=== PATIENT | male | born 1995 | race Caucasian/White ===

== ENCOUNTER 2018-06-14 17:16 | Observation (INO) ==
[2018-06-14] MEDS ORDERED: *HR* LORazepam 2 MG/ML VIAL ONE (17:19)
[2018-06-14] MEDS ORDERED: *HR* LORazepam 2 MG/ML VIAL IVP ONE (17:22)
[2018-06-14] MEDS ORDERED: levETIRAcetam 1,000 MG in 0.9 % Sodium Chloride 100 ML IVPB ONE (17:22)
--- NOTE | 2018-06-14 17:31 | Emergency Department Note ---
Disposition Clinical Impression: Status epilepticus Altered mental status Qualifiers: Altered mental status type: unspecified Qualified Code(s): R41.82 - Altered mental status, unspecified Disposition: Admitted As Inpatient Condition: Good Time of Disposition: 00:07 Seizure HPI - General Chief Complaint: ED Seizure Stated Complaint: seizure Time Seen by Provider: 06/14/18 17:21 Source: patient Mode of arrival: ambulatory Limitations: no limitations Nursing Notes Reviewed: Yes Vital Signs Reviewed: Yes - History of Present Illness HPI Narrative: 22-year-old male history of seizure disorder last seizure reported 2 years ago not currently on any antiepileptic medication presents to the emergency departme nt presents emergency department for altered mental status. Patient was seen immediately on arrival and was placed in the trauma bay resuscitation room. He was initially limpid nonresponsive. With sternal rub he did awaken. He however is not speaking. A point of care glucose was performed in it was 90. Family members state that he was not feeling well today. He did have a documented fever of 103 at 1400 and was given for tablets of ibuprofen. Patients afebrile here. They will recall any seizure like activity. During my evaluation his jaw clenched and had what appear to be a 2nd seizure. His oxygen saturation remained 98%. There was no urinary incontinence or tongue biting. Ativan was administered after the activity had ceased. No reported trauma. Pt Subjective Complaint: possible seizure, altered sense of awareness - Related Data Previous Rx's Medication Instructions Recorded Cyclobenzaprine [Flexeril] 10 mg PO TID #30 tablet 03/16/15 Ibuprofen [Motrin] 800 mg PO Q8HR #30 tablet 03/16/15 Allergies Allergy/AdvReac Type Severity Reaction Status Date / Time No Known Allergies Allergy Verified 03/16/15 09:04 Limitations: ROS unobtainable due to patients medical condition Past Medical History - Past Medical History Source: obtained from family Medical history: Reports: seizures Surgical history: Reports: no surgical history Psychiatric history: Reports: no psych history - Social History Smoking Status: Never smoker Smokeless Tobacco Status: No Alcohol use: Reports: occasionally Drug use: Reports: none Physical Exam - General Limitations: no limitations General appearance: alert, in no apparent distress - Head Head exam: atraumatic, normocephalic, normal inspection - Eye Eye exam: Present: normal appearance, PERRL, EOMI - ENT ENT exam: normal exam, normal oropharynx, mucous membranes moist - Expanded ENT Exam External ear exam: Present: normal external inspection Mouth exam: Present: normal external inspection, tongue normal. Absent: laceration Teeth exam: Present: normal inspection Throat exam: Present: normal inspection - Neck Neck exam: Present: normal inspection, full ROM, trachea midline - Chest Chest inspection: Present: normal inspection, symmetric chest wall rise - Respiratory Respiratory exam: Present: normal lung sounds bilaterally - Cardiovascular Cardiovascular exam: Present: regular rate, normal rhythm, normal heart sounds - Abdominal Exam Abdominal exam: Present: soft, Non-Tender, normal bowel sounds. Absent: tenderness, distention, guarding, rebound, rigidity - Extremities Exam Extremities exam: Present: normal inspection, full ROM, normal capillary refill. Absent: tenderness, pedal edema - Back Exam Back exam: Present: normal inspection, full ROM. Absent: tenderness - Skin Skin exam: Present: warm, dry, intact, normal color. Absent: rash, cyanosis, diaphoresis Course Course Narrative: Patient had what appear to be a seizure during evaluation. Reported history of seizures but is not currently on any antiepileptic medication. Fever prior to arrival a febrile here. Patient had complained to family member of difficulty with vision. Workup including CT scan basic labs urine drug screen and likely will require lumbar puncture. Patient was given Ativan and will be bolus Keppra - Reevaluation(s) Reevaluation #1: CT scan did not reveal any intracranial abnormality. He had a mild leukocytosis. Loves or otherwise unremarkable. Lumbar puncture was performed and was unsuccessful after one attempt by myself and 2 other emergency physician writers. At this time patient will be empirically treated with antibiotics including acyclovir and Decadron. Interventional radiology has been contacted to perform lumbar puncture under fluoroscopy. Time: 19:31 Reevaluation #2: Awaiting lumbar puncture by interventional radiology. Mother and father in the room, the patient is awake and interactive and talking. He denies any pain at this time. This is significantly improved from prior to the lumbar puncture. Time: 20:46 Reevaluation #3: Review of CSF no WBC or red blood cells scene. Culture sent. Recommendation for MRI by neurologist. Patient will be admitted for suspected status epilepticus. - Consultations Consultation #1: Spoke to IR, Dr. Shook will come to perform LP. Time: 19:42 Consultation #2: Consult with Neurologist Dr. Barfield, agrees with current management and recommends inpatient MRI. Recommendation for Keppra 500 mg scheduled BID. Will see the patient in consultation with medicine admission. Discuss the LP results and does not believe it is meningitis. Patient was empirically treated prior to LP Time: 23:17 Vital Signs Temperature 99 F 06/14/18 17:18 Pulse Rate 83 06/14/18 17:18 Respiratory Rate 17 06/14/18 17:18 Blood Pressure 122/55 06/14/18 17:18 O2 Sat by Pulse Oximetry 96 06/14/18 17:18 Temperature 99 F 06/14/18 17:18 Pulse Rate 74 06/14/18 22:15 Respiratory Rate 16 06/14/18 22:15 Blood Pressure 120/58 06/14/18 22:15 O2 Sat by Pulse Oximetry 98 06/14/18 22:15 Oxygen Delivery Oxygen Delivery Room Air Procedures - Lumbar Puncture Consent Obtained: written consent Time Out Performed: Yes Patient Position: right lateral decubitus Skin Prep: Povidone-Iodine 1% Local Anesthetic: lidocaine 1% Spinal Needle Gauge: 20G Interspace Used: L3-L4 Complications: Need to have other Practitioner Attempt, unable to obtain CSF Seizure - MDM Narrative Medical decision making narrative: Patient was discussed with my attending physician who agrees with ED management and final disposition. They independently evaluated the patient. Please refer to their attestation to this encounter for additional information. This note was generated by [employer] voice recognition software and as a result grammatical or spelling errors may occur using this program. - Medical Records Medical records reviewed: Yes I reviewed the patient's medical records. - Lab Data Lab results reviewed: Yes I reviewed the patient's lab results. Result diagrams: 06/14/18 17:32 06/14/18 17:32 Lab Results 06/14/18 06/14/18 06/14/18 Range/Units 17:32 17:32 17:32 WBC 13.0 H (4.3-11.1) K/mcL RBC 4.49 (4.19-5.50) M/mcL Hgb 14.9 (12.9-16.9) g/dL Hct 42.2 (37.5-50.1) % MCV 94.0 (83.0-100.0) fL MCH 33.2 (28.0-33.3) pg MCHC 35.3 (31.6-35.5) g/dL RDW 11.3 L (11.5-14.5) % Plt Count 193 (140-400) K/mcL MPV 10.8 (9.4-12.4) fL Immature Gran % 0.2 (0-4) % Seg Neutrophils % 65.4 % Lymphocytes % 19.0 % Monocytes % 14.7 % Eosinophils % 0.2 % Basophils % 0.5 % Neutrophils # 8.5 (1.6-8.9) K/mcL Lymphocytes # 2.5 (0.6-4.6) K/mcL Monocytes # 1.9 H (0.0-1.3) K/mcL Eosinophils # 0.0 (0.0-0.6) K/mcL Basophils # 0.1 (0.0-0.2) K/mcL Sodium 135 L (136-145) mEq/L Potassium 3.5 (3.5-5.1) mEq/L Chloride 103 (98-107) mEq/L Carbon Dioxide 25 (23-29) mEq/L BUN 12 (6-20) mg/dL Creatinine 1.23 (0.70-1.30) mg/dL Est GFR ( Amer) > 60 (> 60) Est GFR (Non-Af Amer) > 60 (> 60) BUN/Creatinine Ratio 10 (6-26) Glucose 113 H (70-105) mg/dL Calculated Osmolality 281 (280-300) Lactic Acid 1.2 (0.5-2.2) mmol/L Calcium 9.3 (8.6-10.3) mg/dL Total Bilirubin 1.0 (0.3-1.0) mg/dL AST 19 (13-39) Units/L ALT 20 (7-52) Units/L Alkaline Phosphatase 84 (34-104) Units/L Serum Total Protein 6.8 (6.4-8.9) g/dL Albumin 4.3 (3.5-5.7) g/dL Globulin 2.5 (2.4-3.5) g/dL Albumin/Globulin Ratio 1.7 (1.1-2.2) Urine Color (Yellow) Urine Clarity (Clear) Urine pH (5.0-8.0) pH Units Ur Specific Hardy (1.010-1.025) Urine Protein (Neg-Trace) mg/dL Urine Glucose (UA) (Normal) mg/dL Urine Ketones (Negative) mg/dL Urine Blood (Negative) Urine Nitrite (Negative) Urine Bilirubin (Negative) Urine Urobilinogen (Normal) mg/dL Ur Leukocyte Esterase (Negative) Urine Microscopic RBC (0-3) per hpf Urine Microscopic WBC (0-3) per hpf Ur Squamous Epith Cells (None-Few) per lpf Urine Bacteria (None-Few) per hpf Hyaline Casts (None-Few) per lpf CSF Volume mL CSF Appearance (Clear) CSF Color (Colorless) CSF RBC (0.000 - 0.002) M/mcL CSF Tot Nucleated Cells (0-5) TNC/mcL CSF Seg Neutrophils CSF Band Neutrophils % CSF Lymphocytes % CSF Monocytes % CSF Eosinophils % CSF Basophils % CSF Other Cells % CSF Glucose (40-70) mg/dL CSF Total Protein (15-45) mg/dL Salicylates (15.0-30.0) mg/dL Urine Opiates Screen (Zixzjf=427) ng/mL Acetaminophen (10-20) mcg/mL Ur Barbiturates Screen (Nbruoh=680) ng/mL Ur Phencyclidine Scrn (Cutoff=25) ng/mL Ur Amphetamines Screen (Ucsoxb=0087) ng/mL U Benzodiazepines Scrn (Quluxz=421) ng/mL Urine Cocaine Screen (Cutoff= 300) ng/mL U Marijuana (THC) Screen (Cutoff = 50) ng/mL Ur Drug Screen Interp Ethyl Alcohol (Less than 10) mg/dL 06/14/18 06/14/18 06/14/18 Range/Units 19:42 19:42 19:52 WBC (4.3-11.1) K/mcL RBC (4.19-5.50) M/mcL Hgb (12.9-16.9) g/dL Hct (37.5-50.1) % MCV (83.0-100.0) fL MCH (28.0-33.3) pg MCHC (31.6-35.5) g/dL RDW (11.5-14.5) % Plt Count (140-400) K/mcL MPV (9.4-12.4) fL Immature Gran % (0-4) % Seg Neutrophils % % Lymphocytes % % Monocytes % % Eosinophils % % Basophils % % Neutrophils # (1.6-8.9) K/mcL Lymphocytes # (0.6-4.6) K/mcL Monocytes # (0.0-1.3) K/mcL Eosinophils # (0.0-0.6) K/mcL Basophils # (0.0-0.2) K/mcL Sodium (136-145) mEq/L Potassium (3.5-5.1) mEq/L Chloride (98-107) mEq/L Carbon Dioxide (23-29) mEq/L BUN (6-20) mg/dL Creatinine (0.70-1.30) mg/dL Est GFR ( Amer) (> 60) Est GFR (Non-Af Amer) (> 60) BUN/Creatinine Ratio (6-26) Glucose (70-105) mg/dL Calculated Osmolality (280-300) Lactic Acid (0.5-2.2) mmol/L Calcium (8.6-10.3) mg/dL Total Bilirubin (0.3-1.0) mg/dL AST (13-39) Units/L ALT (7-52) Units/L Alkaline Phosphatase (34-104) Units/L Serum Total Protein (6.4-8.9) g/dL Albumin (3.5-5.7) g/dL Globulin (2.4-3.5) g/dL Albumin/Globulin Ratio (1.1-2.2) Urine Color Yellow (Yellow) Urine Clarity Clear (Clear) Urine pH 6.5 (5.0-8.0) pH Units Ur Specific Hardy 1.012 (1.010-1.025) Urine Protein Trace (Neg-Trace) mg/dL Urine Glucose (UA) Normal (Normal) mg/dL Urine Ketones 15 H (Negative) mg/dL Urine Blood Negative (Negative) Urine Nitrite Negative (Negative) Urine Bilirubin Negative (Negative) Urine Urobilinogen Normal (Normal) mg/dL Ur Leukocyte Esterase Negative (Negative) Urine Microscopic RBC 0-3 (0-3) per hpf Urine Microscopic WBC 0-3 (0-3) per hpf Ur Squamous Epith Cells Many H (None-Few) per lpf Urine Bacteria None Seen (None-Few) per hpf Hyaline Casts None Seen (None-Few) per lpf CSF Volume mL CSF Appearance (Clear) CSF Color (Colorless) CSF RBC (0.000 - 0.002) M/mcL CSF Tot Nucleated Cells (0-5) TNC/mcL CSF Seg Neutrophils CSF Band Neutrophils % CSF Lymphocytes % CSF Monocytes % CSF Eosinophils % CSF Basophils % CSF Other Cells % CSF Glucose (40-70) mg/dL CSF Total Protein (15-45) mg/dL Salicylates < 2.5 L (15.0-30.0) mg/dL Urine Opiates Screen Negative (Embono=710) ng/mL Acetaminophen < 10 L (10-20) mcg/mL Ur Barbiturates Screen Negative (Wwkynq=875) ng/mL Ur Phencyclidine Scrn Negative (Cutoff=25) ng/mL Ur Amphetamines Screen Negative (Lwoykb=0030) ng/mL U Benzodiazepines Scrn Positive H (Otcwfo=835) ng/mL Urine Cocaine Screen Negative (Cutoff= 300) ng/mL U Marijuana (THC) Screen Negative (Cutoff = 50) ng/mL Ur Drug Screen Interp See Below Ethyl Alcohol < 10 (Less than 10) mg/dL 06/14/18 06/14/18 Range/Units 21:37 21:41 WBC (4.3-11.1) K/mcL RBC (4.19-5.50) M/mcL Hgb (12.9-16.9) g/dL Hct (37.5-50.1) % MCV (83.0-100.0) fL MCH (28.0-33.3) pg MCHC (31.6-35.5) g/dL RDW (11.5-14.5) % Plt Count (140-400) K/mcL MPV (9.4-12.4) fL Immature Gran % (0-4) % Seg Neutrophils % % Lymphocytes % % Monocytes % % Eosinophils % % Basophils % % Neutrophils # (1.6-8.9) K/mcL Lymphocytes # (0.6-4.6) K/mcL Monocytes # (0.0-1.3) K/mcL Eosinophils # (0.0-0.6) K/mcL Basophils # (0.0-0.2) K/mcL Sodium (136-145) mEq/L Potassium (3.5-5.1) mEq/L Chloride (98-107) mEq/L Carbon Dioxide (23-29) mEq/L BUN (6-20) mg/dL Creatinine (0.70-1.30) mg/dL Est GFR ( Amer) (> 60) Est GFR (Non-Af Amer) (> 60) BUN/Creatinine Ratio (6-26) Glucose (70-105) mg/dL Calculated Osmolality (280-300) Lactic Acid (0.5-2.2) mmol/L Calcium (8.6-10.3) mg/dL Total Bilirubin (0.3-1.0) mg/dL AST (13-39) Units/L ALT (7-52) Units/L Alkaline Phosphatase (34-104) Units/L Serum Total Protein (6.4-8.9) g/dL Albumin (3.5-5.7) g/dL Globulin (2.4-3.5) g/dL Albumin/Globulin Ratio (1.1-2.2) Urine Color (Yellow) Urine Clarity (Clear) Urine pH (5.0-8.0) pH Units Ur Specific Hardy (1.010-1.025) Urine Protein (Neg-Trace) mg/dL Urine Glucose (UA) (Normal) mg/dL Urine Ketones (Negative) mg/dL Urine Blood (Negative) Urine Nitrite (Negative) Urine Bilirubin (Negative) Urine Urobilinogen (Normal) mg/dL Ur Leukocyte Esterase (Negative) Urine Microscopic RBC (0-3) per hpf Urine Microscopic WBC (0-3) per hpf Ur Squamous Epith Cells (None-Few) per lpf Urine Bacteria (None-Few) per hpf Hyaline Casts (None-Few) per lpf CSF Volume 11.0 mL CSF Appearance Clear (Clear) CSF Color Colorless (Colorless) CSF RBC < 0.002 (0.000 - 0.002) M/mcL CSF Tot Nucleated Cells < 3 (0-5) TNC/mcL CSF Seg Neutrophils Test Not Performed CSF Band Neutrophils % Test Not Performed CSF Lymphocytes % Test Not Performed CSF Monocytes % Test Not Performed CSF Eosinophils % Test Not Performed CSF Basophils % Test Not Performed CSF Other Cells % Test Not Performed CSF Glucose 67 (40-70) mg/dL CSF Total Protein 21 (15-45) mg/dL Salicylates (15.0-30.0) mg/dL Urine Opiates Screen (Yqlncm=162) ng/mL Acetaminophen (10-20) mcg/mL Ur Barbiturates Screen (Meuuyf=282) ng/mL Ur Phencyclidine Scrn (Cutoff=25) ng/mL Ur Amphetamines Screen (Ovfkaa=9508) ng/mL U Benzodiazepines Scrn (Issedx=506) ng/mL Urine Cocaine Screen (Cutoff= 300) ng/mL U Marijuana (THC) Screen (Cutoff = 50) ng/mL Ur Drug Screen Interp Ethyl Alcohol (Less than 10) mg/dL - Radiology Data Radiology results reviewed: Yes I reviewed the patient's radiology results. Head CT 06/14/18 17:22 IMPRESSION: No acute intracranial abnormality. D/ / Primitivo Murphy MD / Primitivo Murphy MD Interpreting Provider: Primitivo Murphy MD Chest X-Ray 06/14/18 17:24 IMPRESSION: No acute cardiopulmonary process. D/ / Lele Shook MD / Lele Shook MD Interpreting Provider: Lele Shook MD - EKG Data EKG attestation: Yes I reviewed and interpreted this EKG. Interpretation: no acute changes, normal EKG
[2018-06-14 17:43] LABS: Basophils # 0.1 K/mcL (0.0-0.2); Basophils % 0.5 %; Eosinophils % 0.2 %; Hematocrit 42.2 % (37.5-50.1); Hemoglobin 14.9 g/dL (12.9-16.9); Immature Granulocytes % 0.2 % (0-4); Lymphocytes # 2.5 K/mcL (0.6-4.6); Mean Corpuscular HGB Conc 35.3 g/dL (31.6-35.5); Mean Corpuscular Hemoglobin 33.2 pg (28.0-33.3); Mean Platelet Volume 10.8 fL (9.4-12.4); Monocytes # 1.9 K/mcL (0.0-1.3); Monocytes % 14.7 %; Neutrophils # 8.5 K/mcL (1.6-8.9); Platelet Count 193 K/mcL (140-400); Red Blood Count 4.49 M/mcL (4.19-5.50); Red Cell Distribution Width 11.3 % (11.5-14.5); Segmented Neutrophils % 65.4 %
[2018-06-14] MEDS ORDERED: 0.9 % Sodium Chloride 1,000 ML ONE ×2 (17:51→19:20)
[2018-06-14] MEDS ORDERED: 0.9 % Sodium Chloride 1,000 ML IVC ONE ×3 (18:00→19:44)
[2018-06-14 18:03] LABS: Alanine Aminotransferase 20 Units/L (7-52); Albumin 4.3 g/dL (3.5-5.7); Albumin/Globulin Ratio 1.7 (1.1-2.2); Alkaline Phosphatase 84 Units/L (34-104); Aspartate Amino Transferase 19 Units/L (13-39); BUN/Creatinine Ratio 10 (6-26); Blood Urea Nitrogen 12 mg/dL (6-20); Calcium 9.3 mg/dL (8.6-10.3); Carbon Dioxide 25 mEq/L (23-29); Chloride 103 mEq/L (98-107); Globulin 2.5 g/dL (2.4-3.5); Glucose 113 mg/dL (70-105); Osmolality,Calculated 281 (280-300); Potassium 3.5 mEq/L (3.5-5.1); Sodium 135 mEq/L (136-145); Total Protein 6.8 g/dL (6.4-8.9); eGFR For Non-African Americans > 60 (> 60)
[2018-06-14] MEDS ORDERED: Lidocaine/EPI 1:100k 1% 30 ML VIAL INFILT STA (18:33)
--- NOTE | 2018-06-14 18:38 | Emergency Department Note ---
Disposition Clinical Impression: Altered mental status Qualifiers: Altered mental status type: unspecified Qualified Code(s): R41.82 - Altered mental status, unspecified Disposition: Still a Patient Condition: Good Referrals: NONE,PCP [Primary Care Provider] - Forms: ED Satisfaction Letter Seizure HPI - General Chief Complaint: ED Seizure Stated Complaint: seizure Time Seen by Provider: 06/14/18 17:21 Source: patient Mode of arrival: ambulatory Limitations: no limitations - Related Data Previous Rx's Medication Instructions Recorded Cyclobenzaprine [Flexeril] 10 mg PO TID #30 tablet 03/16/15 Ibuprofen [Motrin] 800 mg PO Q8HR #30 tablet 03/16/15 Allergies Allergy/AdvReac Type Severity Reaction Status Date / Time No Known Allergies Allergy Verified 03/16/15 09:04 Past Medical History - Past Medical History Medical history: Reports: seizures Surgical history: Reports: no surgical history Psychiatric history: Reports: no psych history - Social History Smoking Status: Never smoker Smokeless Tobacco Status: No Alcohol use: Reports: occasionally Drug use: Reports: none Physical Exam - General Limitations: no limitations General appearance: lethargic Course Vital Signs Temperature 99 F 06/14/18 17:18 Pulse Rate 83 06/14/18 17:18 Respiratory Rate 17 06/14/18 17:18 Blood Pressure 122/55 06/14/18 17:18 O2 Sat by Pulse Oximetry 96 06/14/18 17:18 Temperature 99 F 06/14/18 17:18 Pulse Rate 92 06/14/18 19:10 Respiratory Rate 20 06/14/18 19:20 Blood Pressure 90/64 06/14/18 19:20 O2 Sat by Pulse Oximetry 97 06/14/18 19:20 Oxygen Delivery Oxygen Delivery Room Air Procedures - Lumbar Puncture Consent Obtained: verbal consent (With mother) Time Out Performed: Yes Patient Position: right lateral decubitus Skin Prep: Povidone-Iodine 1% Local Anesthetic: lidocaine 1%, with epi Spinal Needle Gauge: 20G Interspace Used: Other (2 attempts made at the L4-L5 interspace as well as the L3-L4 interspace unable to obtain fluid.) Complications: Need to have other Practitioner Attempt, unable to obtain CSF Seizure - Lab Data Result diagrams: 06/14/18 17:32 06/14/18 17:32 Lab Results 06/14/18 06/14/18 06/14/18 Range/Units 17:32 17:32 17:32 WBC 13.0 H (4.3-11.1) K/mcL RBC 4.49 (4.19-5.50) M/mcL Hgb 14.9 (12.9-16.9) g/dL Hct 42.2 (37.5-50.1) % MCV 94.0 (83.0-100.0) fL MCH 33.2 (28.0-33.3) pg MCHC 35.3 (31.6-35.5) g/dL RDW 11.3 L (11.5-14.5) % Plt Count 193 (140-400) K/mcL MPV 10.8 (9.4-12.4) fL Immature Gran % 0.2 (0-4) % Seg Neutrophils % 65.4 % Lymphocytes % 19.0 % Monocytes % 14.7 % Eosinophils % 0.2 % Basophils % 0.5 % Neutrophils # 8.5 (1.6-8.9) K/mcL Lymphocytes # 2.5 (0.6-4.6) K/mcL Monocytes # 1.9 H (0.0-1.3) K/mcL Eosinophils # 0.0 (0.0-0.6) K/mcL Basophils # 0.1 (0.0-0.2) K/mcL Sodium 135 L (136-145) mEq/L Potassium 3.5 (3.5-5.1) mEq/L Chloride 103 (98-107) mEq/L Carbon Dioxide 25 (23-29) mEq/L BUN 12 (6-20) mg/dL Creatinine 1.23 (0.70-1.30) mg/dL Est GFR ( Amer) > 60 (> 60) Est GFR (Non-Af Amer) > 60 (> 60) BUN/Creatinine Ratio 10 (6-26) Glucose 113 H (70-105) mg/dL Calculated Osmolality 281 (280-300) Lactic Acid 1.2 (0.5-2.2) mmol/L Calcium 9.3 (8.6-10.3) mg/dL Total Bilirubin 1.0 (0.3-1.0) mg/dL AST 19 (13-39) Units/L ALT 20 (7-52) Units/L Alkaline Phosphatase 84 (34-104) Units/L Serum Total Protein 6.8 (6.4-8.9) g/dL Albumin 4.3 (3.5-5.7) g/dL Globulin 2.5 (2.4-3.5) g/dL Albumin/Globulin Ratio 1.7 (1.1-2.2) Attestation Statement - Attestation Attestation: Resident Attestation: I examined this patient and my medical decision making was reviewed with the Resident Physician. I agree with the documented findings, disposition and treatment plan as described except to the extent set forth below. We independently had [id number] contact with the patient. Patient seen and evaluated with resident physician Dr. Edward. Please see her note for further details and disposition. Patient presents to the emergency department after concern for seizure. Patient not been feeling well today. Temperature of 103 at home. The patient took ibuprofen prior to the seizure. Afebrile here in the department. Patient's initial call for unresponsive. History of seizure times to verify with mother over the phone. Not on seizure medication and unknown previous medication. Patient had been evaluated twice in the past for seizures. States full workup at [facility] with MRI in EEG without finding. The last seizure was 2 years ago. The girlfriend and friend are at bedside. Grandmother comes to bedside. Mom had an on the phone to further discuss history area patient's overall seizure- like activity upon presentation had jaw clenching as well as no purposeful movements. Patient began to respond by looking in different directions and concern for postictal state until he began having another seizure of tensing up with associated tachycardia. Patient was given 2 mg of IV Ativan and shortly after was resting comfortably. Patient has been checked on multiple times during the hour that he has been here within the emergency department and is now following commands by squeezing our hands and looking around. He had a compla int of vision loss which at this time he is not able to communicate with words and unable to tell us about. Given his fever as well as his elevated white count he will undergo LP for further evaluation. Patient's overall status will be pending the completion of his workup. Will likely be admitted for further neurologic evaluation. Disposition at this hospital versus other hospital will likely be based off discussion with neurology. Patient signed out to the [facility]. Fluid is unable to be obtained. Attempt by 2 different providers. Interventional radiology paged.
[2018-06-14] MEDS ORDERED: *HR* Midazolam HCl 5 MG/5 ML VIAL IVP ONE (18:49)
[2018-06-14] MEDS ORDERED: cefTRIAXone 2,000 MG in Water for inj. (sterile) 20 ML 20 ML IVP ONE (19:24)
[2018-06-14] MEDS ORDERED: Dexamethasone 4 MG/ML VIAL IVP ONE (19:25)
[2018-06-14] MEDS ORDERED: Acyclovir 750 MG in D5% in Water 250 ML IVPB ONE (19:30)
[2018-06-14] MEDS ORDERED: *HR* Midazolam HCl 2 MG/2 ML VIAL IVP ONE (19:43)
[2018-06-14 19:57] LABS: Bilirubin,Urine Negative (Negative); Blood,Urine Negative (Negative); Clarity,Urine Clear (Clear); Color,Urine Yellow (Yellow); Glucose,Urine (UA) Normal (Normal); Ketones,Urine 15 mg/dL (Negative); Leukocyte Esterase,Urine Negative (Negative); Nitrite,Urine Negative (Negative); PH,Urine 6.5 pH Units (5.0-8.0); Protein,Urine Trace mg/dL (Neg-Trace); Specific Gravity,Urine 1.012 (1.010-1.025); Urobilinogen,Urine Normal (Normal)
[2018-06-14 20:01] LABS: Bacteria,Urine None Seen per hpf (None-Few); Hyaline Casts,Urine None Seen per lpf (None-Few); RBC,Urine 0-3 per hpf (0-3); Squamous Epithelial Cell,Urine Many per lpf (None-Few); WBC,Urine 0-3 per hpf (0-3)
[2018-06-14] MEDS ORDERED: Ondansetron 4 MG/2 ML VIAL IVP ONE (20:12)
[2018-06-14 20:13] LABS: Amphetamine Screen,Urine Negative ng/mL (Cutoff=1000); Barbiturate Screen,Urine Negative ng/mL (Cutoff=200); Benzodiazepines Screen,Urine Positive ng/mL (Cutoff=200); Cannabinoid Screen,Urine Negative ng/mL (Cutoff = 50); Cocaine Screen,Urine Negative ng/mL (Cutoff= 300); Opiate Screen,Urine Negative ng/mL (Cutoff=300); Phencyclidine Screen,Urine Negative ng/mL (Cutoff=25)
[2018-06-14 20:33] LABS: Acetaminophen < 10 mcg/mL (10-20); Ethanol < 10 mg/dL (Less than 10); Salicylate < 2.5 mg/dL (15.0-30.0)
[2018-06-14 22:12] LABS: Red Blood Cell,CSF < 0.002 M/mcL
[2018-06-14 22:13] LABS: Appearance,CSF Clear (Clear)
[2018-06-14 23:09] LABS: Glucose,CSF 67 mg/dL (40-70); Total Protein,CSF 21 mg/dL (15-45)
--- NOTE | 2018-06-14 23:24 | Emergency Department Note ---
Disposition Clinical Impression: Status epilepticus Altered mental status Qualifiers: Altered mental status type: unspecified Qualified Code(s): R41.82 - Altered mental status, unspecified Disposition: Admitted As Inpatient Condition: Good General Adult HPI - General Chief complaint: ED Seizure Stated complaint: seizure Time Seen by Provider: 06/14/18 17:21 Source: patient Mode of arrival: ambulatory Limitations: no limitations Nursing Notes Reviewed: Yes Vital Signs Reviewed: Yes - History of Present Illness Pain Scale: 0 - Related Data Previous Rx's Medication Instructions Recorded Cyclobenzaprine [Flexeril] 10 mg PO TID #30 tablet 03/16/15 Ibuprofen [Motrin] 800 mg PO Q8HR #30 tablet 03/16/15 Allergies Allergy/AdvReac Type Severity Reaction Status Date / Time No Known Allergies Allergy Verified 03/16/15 09:04 Past Medical History - Past Medical History Medical history: Reports: seizures Surgical history: Reports: no surgical history Psychiatric history: Reports: no psych history - Social History Smoking Status: Never smoker Smokeless Tobacco Status: No Alcohol use: Reports: occasionally Drug use: Reports: none Physical Exam - General Limitations: no limitations General appearance: alert, in no apparent distress Course Vital Signs Temperature 99 F 06/14/18 17:18 Pulse Rate 83 06/14/18 17:18 Respiratory Rate 17 06/14/18 17:18 Blood Pressure 122/55 06/14/18 17:18 O2 Sat by Pulse Oximetry 96 06/14/18 17:18 Temperature 99 F 06/14/18 17:18 Pulse Rate 74 06/14/18 22:15 Respiratory Rate 16 06/14/18 22:15 Blood Pressure 120/58 06/14/18 22:15 O2 Sat by Pulse Oximetry 98 06/14/18 22:15 Oxygen Delivery Oxygen Delivery Room Air Medical Decision Making - Lab Data Lab results reviewed: Yes I reviewed the patient's lab results. Result diagrams: 06/14/18 17:32 06/14/18 17:32 Lab Results 06/14/18 06/14/18 06/14/18 Range/Units 17:32 17:32 17:32 WBC 13.0 H (4.3-11.1) K/mcL RBC 4.49 (4.19-5.50) M/mcL Hgb 14.9 (12.9-16.9) g/dL Hct 42.2 (37.5-50.1) % MCV 94.0 (83.0-100.0) fL MCH 33.2 (28.0-33.3) pg MCHC 35.3 (31.6-35.5) g/dL RDW 11.3 L (11.5-14.5) % Plt Count 193 (140-400) K/mcL MPV 10.8 (9.4-12.4) fL Immature Gran % 0.2 (0-4) % Seg Neutrophils % 65.4 % Lymphocytes % 19.0 % Monocytes % 14.7 % Eosinophils % 0.2 % Basophils % 0.5 % Neutrophils # 8.5 (1.6-8.9) K/mcL Lymphocytes # 2.5 (0.6-4.6) K/mcL Monocytes # 1.9 H (0.0-1.3) K/mcL Eosinophils # 0.0 (0.0-0.6) K/mcL Basophils # 0.1 (0.0-0.2) K/mcL Sodium 135 L (136-145) mEq/L Potassium 3.5 (3.5-5.1) mEq/L Chloride 103 (98-107) mEq/L Carbon Dioxide 25 (23-29) mEq/L BUN 12 (6-20) mg/dL Creatinine 1.23 (0.70-1.30) mg/dL Est GFR ( Amer) > 60 (> 60) Est GFR (Non-Af Amer) > 60 (> 60) BUN/Creatinine Ratio 10 (6-26) Glucose 113 H (70-105) mg/dL Calculated Osmolality 281 (280-300) Lactic Acid 1.2 (0.5-2.2) mmol/L Calcium 9.3 (8.6-10.3) mg/dL Total Bilirubin 1.0 (0.3-1.0) mg/dL AST 19 (13-39) Units/L ALT 20 (7-52) Units/L Alkaline Phosphatase 84 (34-104) Units/L Serum Total Protein 6.8 (6.4-8.9) g/dL Albumin 4.3 (3.5-5.7) g/dL Globulin 2.5 (2.4-3.5) g/dL Albumin/Globulin Ratio 1.7 (1.1-2.2) Urine Color (Yellow) Urine Clarity (Clear) Urine pH (5.0-8.0) pH Units Ur Specific [place] (1.010-1.025) Urine Protein (Neg-Trace) mg/dL Urine Glucose (UA) (Normal) mg/dL Urine Ketones (Negative) mg/dL Urine Blood (Negative) Urine Nitrite (Negative) Urine Bilirubin (Negative) Urine Urobilinogen (Normal) mg/dL Ur Leukocyte Esterase (Negative) Urine Microscopic RBC (0-3) per hpf Urine Microscopic WBC (0-3) per hpf Ur Squamous Epith Cells (None-Few) per lpf Urine Bacteria (None-Few) per hpf Hyaline Casts (None-Few) per lpf CSF Volume mL CSF Appearance (Clear) CSF Color (Colorless) CSF RBC (0.000 - 0.002) M/mcL CSF Tot Nucleated Cells (0-5) TNC/mcL CSF Seg Neutrophils CSF Band Neutrophils % CSF Lymphocytes % CSF Monocytes % CSF Eosinophils % CSF Basophils % CSF Other Cells % CSF Glucose (40-70) mg/dL CSF Total Protein (15-45) mg/dL Salicylates (15.0-30.0) mg/dL Urine Opiates Screen (Olmozy=811) ng/mL Acetaminophen (10-20) mcg/mL Ur Barbiturates Screen (Smuzax=608) ng/mL Ur Phencyclidine Scrn (Cutoff=25) ng/mL Ur Amphetamines Screen (Qtmikx=1105) ng/mL U Benzodiazepines Scrn (Gxjepb=926) ng/mL Urine Cocaine Screen (Cutoff= 300) ng/mL U Marijuana (THC) Screen (Cutoff = 50) ng/mL Ur Drug Screen Interp Ethyl Alcohol (Less than 10) mg/dL 06/14/18 06/14/18 06/14/18 Range/Units 19:42 19:42 19:52 WBC (4.3-11.1) K/mcL RBC (4.19-5.50) M/mcL Hgb (12.9-16.9) g/dL Hct (37.5-50.1) % MCV (83.0-100.0) fL MCH (28.0-33.3) pg MCHC (31.6-35.5) g/dL RDW (11.5-14.5) % Plt Count (140-400) K/mcL MPV (9.4-12.4) fL Immature Gran % (0-4) % Seg Neutrophils % % Lymphocytes % % Monocytes % % Eosinophils % % Basophils % % Neutrophils # (1.6-8.9) K/mcL Lymphocytes # (0.6-4.6) K/mcL Monocytes # (0.0-1.3) K/mcL Eosinophils # (0.0-0.6) K/mcL Basophils # (0.0-0.2) K/mcL Sodium (136-145) mEq/L Potassium (3.5-5.1) mEq/L Chloride (98-107) mEq/L Carbon Dioxide (23-29) mEq/L BUN (6-20) mg/dL Creatinine (0.70-1.30) mg/dL Est GFR ( Amer) (> 60) Est GFR (Non-Af Amer) (> 60) BUN/Creatinine Ratio (6-26) Glucose (70-105) mg/dL Calculated Osmolality (280-300) Lactic Acid (0.5-2.2) mmol/L Calcium (8.6-10.3) mg/dL Total Bilirubin (0.3-1.0) mg/dL AST (13-39) Units/L ALT (7-52) Units/L Alkaline Phosphatase (34-104) Units/L Serum Total Protein (6.4-8.9) g/dL Albumin (3.5-5.7) g/dL Globulin (2.4-3.5) g/dL Albumin/Globulin Ratio (1.1-2.2) Urine Color Yellow (Yellow) Urine Clarity Clear (Clear) Urine pH 6.5 (5.0-8.0) pH Units Ur Specific [place] 1.012 (1.010-1.025) Urine Protein Trace (Neg-Trace) mg/dL Urine Glucose (UA) Normal (Normal) mg/dL Urine Ketones 15 H (Negative) mg/dL Urine Blood Negative (Negative) Urine Nitrite Negative (Negative) Urine Bilirubin Negative (Negative) Urine Urobilinogen Normal (Normal) mg/dL Ur Leukocyte Esterase Negative (Negative) Urine Microscopic RBC 0-3 (0-3) per hpf Urine Microscopic WBC 0-3 (0-3) per hpf Ur Squamous Epith Cells Many H (None-Few) per lpf Urine Bacteria None Seen (None-Few) per hpf Hyaline Casts None Seen (None-Few) per lpf CSF Volume mL CSF Appearance (Clear) CSF Color (Colorless) CSF RBC (0.000 - 0.002) M/mcL CSF Tot Nucleated Cells (0-5) TNC/mcL CSF Seg Neutrophils CSF Band Neutrophils % CSF Lymphocytes % CSF Monocytes % CSF Eosinophils % CSF Basophils % CSF Other Cells % CSF Glucose (40-70) mg/dL CSF Total Protein (15-45) mg/dL Salicylates < 2.5 L (15.0-30.0) mg/dL Urine Opiates Screen Negative (Xweuvj=515) ng/mL Acetaminophen < 10 L (10-20) mcg/mL Ur Barbiturates Screen Negative (Zjpyzn=904) ng/mL Ur Phencyclidine Scrn Negative (Cutoff=25) ng/mL Ur Amphetamines Screen Negative (Iipfbv=5781) ng/mL U Benzodiazepines Scrn Positive H (Kouzbq=669) ng/mL Urine Cocaine Screen Negative (Cutoff= 300) ng/mL U Marijuana (THC) Screen Negative (Cutoff = 50) ng/mL Ur Drug Screen Interp See Below Ethyl Alcohol < 10 (Less than 10) mg/dL 06/14/18 06/14/18 Range/Units 21:37 21:41 WBC (4.3-11.1) K/mcL RBC (4.19-5.50) M/mcL Hgb (12.9-16.9) g/dL Hct (37.5-50.1) % MCV (83.0-100.0) fL MCH (28.0-33.3) pg MCHC (31.6-35.5) g/dL RDW (11.5-14.5) % Plt Count (140-400) K/mcL MPV (9.4-12.4) fL Immature Gran % (0-4) % Seg Neutrophils % % Lymphocytes % % Monocytes % % Eosinophils % % Basophils % % Neutrophils # (1.6-8.9) K/mcL Lymphocytes # (0.6-4.6) K/mcL Monocytes # (0.0-1.3) K/mcL Eosinophils # (0.0-0.6) K/mcL Basophils # (0.0-0.2) K/mcL Sodium (136-145) mEq/L Potassium (3.5-5.1) mEq/L Chloride (98-107) mEq/L Carbon Dioxide (23-29) mEq/L BUN (6-20) mg/dL Creatinine (0.70-1.30) mg/dL Est GFR ( Amer) (> 60) Est GFR (Non-Af Amer) (> 60) BUN/Creatinine Ratio (6-26) Glucose (70-105) mg/dL Calculated Osmolality (280-300) Lactic Acid (0.5-2.2) mmol/L Calcium (8.6-10.3) mg/dL Total Bilirubin (0.3-1.0) mg/dL AST (13-39) Units/L ALT (7-52) Units/L Alkaline Phosphatase (34-104) Units/L Serum Total Protein (6.4-8.9) g/dL Albumin (3.5-5.7) g/dL Globulin (2.4-3.5) g/dL Albumin/Globulin Ratio (1.1-2.2) Urine Color (Yellow) Urine Clarity (Clear) Urine pH (5.0-8.0) pH Units Ur Specific [place] (1.010-1.025) Urine Protein (Neg-Trace) mg/dL Urine Glucose (UA) (Normal) mg/dL Urine Ketones (Negative) mg/dL Urine Blood (Negative) Urine Nitrite (Negative) Urine Bilirubin (Negative) Urine Urobilinogen (Normal) mg/dL Ur Leukocyte Esterase (Negative) Urine Microscopic RBC (0-3) per hpf Urine Microscopic WBC (0-3) per hpf Ur Squamous Epith Cells (None-Few) per lpf Urine Bacteria (None-Few) per hpf Hyaline Casts (None-Few) per lpf CSF Volume 11.0 mL CSF Appearance Clear (Clear) CSF Color Colorless (Colorless) CSF RBC < 0.002 (0.000 - 0.002) M/mcL CSF Tot Nucleated Cells < 3 (0-5) TNC/mcL CSF Seg Neutrophils Test Not Performed CSF Band Neutrophils % Test Not Performed CSF Lymphocytes % Test Not Performed CSF Monocytes % Test Not Performed CSF Eosinophils % Test Not Performed CSF Basophils % Test Not Performed CSF Other Cells % Test Not Performed CSF Glucose 67 (40-70) mg/dL CSF Total Protein 21 (15-45) mg/dL Salicylates (15.0-30.0) mg/dL Urine Opiates Screen (Jkekwc=679) ng/mL Acetaminophen (10-20) mcg/mL Ur Barbiturates Screen (Fcyyqc=807) ng/mL Ur Phencyclidine Scrn (Cutoff=25) ng/mL Ur Amphetamines Screen (Jexpdq=9822) ng/mL U Benzodiazepines Scrn (Qiubgu=433) ng/mL Urine Cocaine Screen (Cutoff= 300) ng/mL U Marijuana (THC) Screen (Cutoff = 50) ng/mL Ur Drug Screen Interp Ethyl Alcohol (Less than 10) mg/dL - Radiology Data Radiology results reviewed: Yes I reviewed the patient's radiology results. Head CT 06/14/18 17:22 IMPRESSION: No acute intracranial abnormality. D/ / Primitivo Murphy MD / Primitivo Murphy MD Interpreting Provider: Primitivo Murphy MD Chest X-Ray 06/14/18 17:24 IMPRESSION: No acute cardiopulmonary process. D/ / Lele hSook MD / Lele Shook MD Interpreting Provider: Lele Shook MD Critical Care Time Critical Care Time: Yes Total Critical Care Time: 45 Attestation: Critical care performed: Time is exclusive of separately billable procedures. Time includes: direct patient care, patient reassessment, coordination of patient care, interpretation of data (laboratory data, radiology data, and respiratory data), review of patient's medical records, medical consultation and documentation of patient care. Procedures included in critical care time: Procedures excluded from critical care time: Attestation Statement - Attestation Attestation: I, Giancarlo Bailey MD, personally evaluated this patient and discussed their management with the resident physician. I reviewed the resident's note and agree with the documented findings, medical decision making, and plan of care. This patient was signed out to me at shift change from Dr. Berry. Please refer to his note for complete details of the history and physical examination. Patient was also seen with him by the resident Dr. Edward who is still here during my shift and continue his management of the patient. Patient had a lumbar puncture performed by interventional radiology. The cell count was negative. Patient did have IV antibiotics initiated prior to the lumbar puncture. Dr. Edward discussed the case with the neurologist metal bonding crib attendant, Dr. Barfield. He recommended admission by the hospitalist with neurology consultation. The hospitalist, Dr. Stewart, was consulted and accepted admission of the patient.
[2018-06-15] MEDS ORDERED: Naloxone 0.4 MG/ML INJ IVP PRN (02:49)
--- NOTE | 2018-06-15 02:59 | Internal Med History&Physical ---
Addendum entered and electronically signed by Syd Pinon 06/16/18 15:41: Original Note: <Syd Austin - Last Filed: 06/15/18 03:37> Date of Encounter: 06/15/18 Time of Encounter: 02:47 Internal Medicine - H&P: HPI Chief complaint: Altered mental status/seizure Admitted From: Emergency Dept History of present illness: Mr. Queen is a 22 year old male altered mental status with history of seizures currently not on any antiepileptic medications. Patient reports that this morning 9 AM he started having fever. He he went out shopping and he came home when his girlfriend notes that he started feeling drowsy. It was at this point the patient lost consciousness. His girlfriend reports that patient's fever spike 103. We gave him some Tylenol and put him in a bathtub to decrease fever. After this he presented to ED. Per girlfriend patient did not have any symptoms of seizures\including tonic-clonic activity or shawl clenching. At ED patient had an episode of jaw clenching and lost consciousness. He states that he had a prodromal symptom of fuzziness before this happened and experienced posttraumatic confusion for 10-15 minutes. She denies any head trauma. 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 An ED: Head CT showed no acute intracranial abnormality. CXR showed no acute findings. Urinalysis negative. He was started empirically on acyclovir and Decadron. Preliminary CSF cultures showed no white blood cells, RBCs, bacteria. CSF glucose 67, total protein 21. Acyclovir and Decadron were discontinued following CSF findings. Neurologist was consulted and he was recommended to be placed on 500 mg Keppra twice a day. Past Med Surg Social Fam HX - Past Medical History Medical history: seizures Psychiatric history: no psych history - Past Surgical History Surgical History: no surgical history - Social History Smoking Status: Never smoker Smokeless Tobacco Status: No Alcohol use: occasionally Drug use: none Internal Medicine - H&P: Meds LevETIRAcetam [Keppra] 500 mg PO BID 30 Days #60 tablet 06/15/18 [Rx] Allergy/AdvReac Type Severity Reaction Status Date / Time No Known Allergies Allergy Verified 06/15/18 15:55 All Systems PM: A 10-system review of systems was performed and is negative for pertinent findings except as documented above in the HPI. - Constitutional Constitutional: chills, fever(s), weakness - Cardiovascular Cardiovascular ROS IM: no chest pain, no palpitations - Respiratory Respiratory: no cough, no dyspnea - Gastrointestinal Gastrointestinal: no abdominal pain - Genitourinary Genitourinary ROS male: no urinary frequency, no urinary hesitancy, no urinary incontinence - Neurological Neurological ROS: abnormal movements (Jaw clenching drinks an episode), confusion (Postictal confusion), memory loss, no focal weakness - Constitutional Vitals: Temp Pulse Resp BP Pulse Ox 98.0 F 76 16 128/77 97 06/15/18 01:40 06/15/18 01:40 06/15/18 01:40 06/15/18 01:40 06/15/18 01:40 General appearance: Present: A&O X 3, pleasant, no acute distress, answers questions appropriately Exam: . - Head Head exam: Present: atraumatic, normal inspection - Eye Eye exam: Present: EOMI, normal appearance - Neck Neck exam general surgery: Present: supple, trachea midline - Respiratory Respiratory exam: Present: CTAB - Cardiovascular Cardiovascular exam: Present: RRR, +S1, +S2 - GI/Abdominal GI/Abdominal exam: Absent: tenderness - Extremities Exam Extremities exam: Present: normal inspection, radial pulses palpable and symmetrical - Neurological Exam Neurological exam: Present: alert, CN II-XII intact, oriented X3, no focal deficits, strengths equal and symetr throughout. Absent: motor sensory deficit, facial droop, speech deficit - Psychiatric Psychiatric exam: Present: normal affect, normal mood - Skin Skin exam: Present: dry, intact, warm Internal Med - H&P Results - Labs CBC & Chem 7: 06/14/18 17:32 06/14/18 17:32 Labs: Short CBC 06/14/18 Range/Units 17:32 WBC 13.0 H (4.3-11.1) K/mcL Hgb 14.9 (12.9-16.9) g/dL Hct 42.2 (37.5-50.1) % Plt Count 193 (140-400) K/mcL Neutrophils # 8.5 (1.6-8.9) K/mcL BMP 06/14/18 17:32 Sodium 135 L Potassium 3.5 Chloride 103 Carbon Dioxide 25 BUN 12 Creatinine 1.23 Glucose 113 H Calcium 9.3 Liver Function 06/14/18 Range/Units 17:32 Total Bilirubin 1.0 (0.3-1.0) mg/dL AST 19 (13-39) Units/L ALT 20 (7-52) Units/L Alkaline Phosphatase 84 (34-104) Units/L Albumin 4.3 (3.5-5.7) g/dL Urine 06/14/18 Range/Units 19:42 Urine Color Yellow (Yellow) Urine Clarity Clear (Clear) Urine pH 6.5 (5.0-8.0) pH Units Ur Specific [place] 1.012 (1.010-1.025) Urine Protein Trace (Neg-Trace) mg/dL Urine Glucose (UA) Normal (Normal) mg/dL - Impressions ITS Impressions Head CT 06/14/18 17:22 IMPRESSION: No acute intracranial abnormality. D/ / Primitivo Murphy MD / Primitivo Murphy MD Interpreting Provider: Primitivo Murphy MD Chest X-Ray 06/14/18 17:24 IMPRESSION: No acute cardiopulmonary process. D/ / Lele Shook MD / Lele Shook MD Interpreting Provider: Lele Shook MD - Assessment and plan (1) Status epilepticus Status: Acute Assessment and plan: 22-year-old male presenting with altered mental status, loss of consciousness, fever with history of grand mal seizures. CF analysis was negative for pathology. CT head negative for pathology. Neurology has been consulted and they agreed to see him tomorrow morning. - Neurology asked patient to be put on 500 mg Keppra twice a day. (2) DVT prophylaxis Status: Acute Assessment and plan: Subcutaneous heparin - Time Spent With Patient Total time spent is greater than 50% in coordination of care (as documented) at patient's floor/unit and/or counseling patient: Tal Durán - Last Filed: 06/15/18 19:31> Date of Encounter: 06/15/18 Internal Medicine - H&P: HPI History of present illness: Mr. Queen is a 22 year old male All Systems PM: A 10-system review of systems was performed and is negative for pertinent findings except as documented above in the HPI. - Constitutional Vitals: Temp Pulse Resp BP Pulse Ox 97.3 F L 79 16 108/62 96 06/15/18 11:45 06/15/18 11:45 06/15/18 11:45 06/15/18 11:45 06/15/18 11:45 Internal Med - H&P Results - Labs CBC & Chem 7: 06/15/18 04:12 06/15/18 04:12 Labs: Short CBC 06/15/18 Range/Units 04:12 WBC 9.4 (4.3-11.1) K/mcL Hgb 13.8 (12.9-16.9) g/dL Hct 39.8 (37.5-50.1) % Plt Count 175 (140-400) K/mcL Neutrophils # 8.6 (1.6-8.9) K/mcL BMP 06/15/18 04:12 Sodium 138 Potassium 3.4 L Chloride 106 Carbon Dioxide 24 BUN 11 Creatinine 0.86 Glucose 160 H Calcium 8.9 Urine 06/14/18 Range/Units 19:42 Urine Color Yellow (Yellow) Urine Clarity Clear (Clear) Urine pH 6.5 (5.0-8.0) pH Units Ur Specific [place] 1.012 (1.010-1.025) Urine Protein Trace (Neg-Trace) mg/dL Urine Glucose (UA) Normal (Normal) mg/dL - Impressions ITS Impressions Head CT 06/14/18 17:22 IMPRESSION: No acute intracranial abnormality. D/ / Primitivo Murphy MD / Primitivo Murphy MD Interpreting Provider: Primitivo Murphy MD Chest X-Ray 06/14/18 17:24 IMPRESSION: No acute cardiopulmonary process. D/ / Lele Shook MD / Lele Shook MD Interpreting Provider: Lele Shook MD Lumbar Puncture Fluoroscopy 06/14/18 20:15 IMPRESSION: Successful fluoroscopic-guided lumbar puncture. D/ / Lele Shook MD / Lele Shook MD Interpreting Provider: Lele Shook MD - Time Spent With Patient Total time spent is greater than 50% in coordination of care (as documented) at patient's floor/unit and/or counseling patient: - Attending Attestation I saw and evaluated the patient. I reviewed the residents note, performed my own physical examination and agree with findings and plan as documented in the residents note. Patient seen and examin ed on 06/15/18. Patient presented to the ER with suspected seizure activity of unclear etiology. Initially unresponsive but did improve with ativan. No seizure activity since ER. Patient evaluated by neurology.
[2018-06-15 04:36] LABS: Basophils % 0.1 %; Hematocrit 39.8 % (37.5-50.1); Hemoglobin 13.8 g/dL (12.9-16.9); Immature Granulocytes % 0.3 % (0-4); Lymphocytes # 0.5 K/mcL (0.6-4.6); Lymphocytes % 5.2 %; Mean Corpuscular HGB Conc 34.7 g/dL (31.6-35.5); Mean Corpuscular Hemoglobin 32.4 pg (28.0-33.3); Mean Corpuscular Volume 93.4 fL (83.0-100.0); Mean Platelet Volume 10.7 fL (9.4-12.4); Monocytes # 0.2 K/mcL (0.0-1.3); Monocytes % 2.4 %; Neutrophils # 8.6 K/mcL (1.6-8.9); Platelet Count 175 K/mcL (140-400); Red Blood Count 4.26 M/mcL (4.19-5.50); Red Cell Distribution Width 11.1 % (11.5-14.5)
[2018-06-15 04:53] LABS: BUN/Creatinine Ratio 13 (6-26); Blood Urea Nitrogen 11 mg/dL (6-20); Calcium 8.9 mg/dL (8.6-10.3); Carbon Dioxide 24 mEq/L (23-29); Chloride 106 mEq/L (98-107); Glucose 160 mg/dL (70-105); Osmolality,Calculated 289 (280-300); Potassium 3.4 mEq/L (3.5-5.1); Sodium 138 mEq/L (136-145); eGFR For Non-African Americans > 60 (> 60)
--- NOTE | 2018-06-15 11:14 | Event Note ---
Date of Encounter: 06/15/18 Time of Encounter: 11:12 I have seen and evaluated the patient. No seizures like activities overnight. reported flu like symptoms a couple of days ago. Hemodynamically stable. Potential discharge following neurology evaluation.
[2018-06-15 11:46] VITALS: BP 108/62
--- NOTE | 2018-06-15 12:07 | Neurology - Consult Note ---
Date of Encounter: 06/15/18 Time of Encounter: 11:59 Assessment and Plan (1) Altered mental status Current Visit: Yes Status: Acute Likely secondary to a seizure, likely provoked by fever caused by a flu? 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 Patient has had 1-2 seizure in one day few years ago. Been doing well on Trokendi and was doing well with out antiepileptic therapy for almost a year therefore it is likely that he has a type of seizure disorder that is more susceptible to provoking factors such as fever or infection. Not convinced that this fits diagnosis of status epilepticus since it was not confirmed on an EEG study that he has continuous seizure activity. Plus he has no convulsions or other typical physical presentations of a convulsive events. Will start him on Trokendi with his usual dose ( he has the medicine at home) and he would call his primary neurologist at [facility] for update and medication refills. The MRI of brain was ordered due to prolonged altered mental status. Since he is totally recovered then if he wants to go home and this can certainly be done as an outpatient, so as the EEG. Okay to discharge home from neurology perspective. Patient can call office here or [place] for follow up as he pleases. Total time spend on this patient is approximately 50 minutes, of which more than 50% was spend directly with the patient and family members as well as coordination of care. All questions answered. Seizure precaution is advised to the patinet. Neurological prognosis of this patient is fair. Qualifiers: Altered mental status type: disorientation Qualified Code(s): R41.0 - Disorientation, unspecified History of Present Illness Chief complaint: seizure, fever and prologned loss of consciousness HPI: Mr. Queen is a 22 year old male with PMH significant for seizure disorder, currently not on antiepileptic therapy who presented to ER with high fever, feeling sick and then a witnessed 'iraj mal' seizure and then prolonged altered mental status. Patient is interviewed in the presence of his girlfriend, who witnessed the illness. Patient apparently developed malaise and flu like symptoms and was having some diaphoresis and girlfriend checked his temporal and it was 103. So he was brought to the ER here at [place] where he was witnessed to have a 'iraj mal' seizure, no urinary incontinence and no tongue biting. Then following the seizure he was not responsive for prolonged period of time. He was given ativan and loaded keppra and admitted onto medical floor. Initial CT of head was reported no acute intracranila abnormality Patient had 1-2 seizures during one day few years ago while he was treated in [facility] he had a seizure and then was started on Keppra. He was seen by neurologist over there. He developed side effects from keppra and he was switched to Trokendi, ( EX form of Topiramate) and he was doing well with it and then since he was doing well he discontinued the medicine and when he saw his neurologist he told the doctor that he has remained seizure free for almost a year therefore it was decided that he could go off medication. Patient has no recollection of the event. He felt fine prior to the seizure, except that he had flu like symptoms and sweaty. Patient would like to go home today. He has nonfocal neurological examination. CSF study is essentially normal. Past Med Surg Social Fam HX - Past Medical History Medical history: seizures Psychiatric history: no psych history - Past Surgical History Surgical History: no surgical history - Social History Smoking Status: Never smoker Smokeless Tobacco Status: No Alcohol use: occasionally Drug use: none Medications and Allergies Cyclobenzaprine [Flexeril] 10 mg PO TID #30 tablet 03/16/15 [Rx] Ibuprofen [Motrin] 800 mg PO Q8HR #30 tablet 03/16/15 [Rx] Allergy/AdvReac Type Severity Reaction Status Date / Time No Known Allergies Allergy Verified 03/16/15 09:04 All Systems: The remainder of the systems were reviewed and are negative Physical Examination - Vital Signs Vital Signs: Initial Vital Signs Temp Pulse Resp BP Pulse Ox 99 F 83 17 122/55 96 06/14/18 17:18 06/14/18 17:18 06/14/18 17:18 06/14/18 17:18 06/14/18 17:18 - Constitutional General appearance: comfortable - Neurologic Detailed motor examination: full strength in all major muscle groups Motor examination - right side: 5/5: deltoids, biceps, triceps, wrist flexion, wrist extension, dive superintendent, hip flexors, tibialis Anterior, quadriceps, toe extension (EHL), plantarflexion Motor examination - left side: 5/5: deltoids, biceps, triceps, wrist flexion, wrist extension, hip flexors, dive superintendent, quadriceps, tibialis Anterior, toe extension (EHL), plantarflexion Detailed sensory examination: intact Posture: other (NOne) Reflex and gait examination: intact Reflexes: Biceps: 2+, Triceps: 2+, Brachioradialis: 2+, Patella: 2+, Achilles: 2+ Mental Status Examination: awake, alert, oriented to person, oriented to place, oriented to time, follows commands appropriately, answers questions appropriately, no agnosia, no aphasia, no aproxia Cranial nerve examination: PERRL, EOMI, visual maria intact, corneal reflexes brisk symmetrically, sensory to face intact, mastication intact, no facial asymmetry is present, no dysarthria, hearing is intact symmetrically, soft palate elevates bilaterally upon phonation, gag reflex intact, flexes SCM and trapezius muscles symmetrically with full power, tongue protrudes midline, no atrophy or facial fasiculations present Cerebellar examination: no dysmetria, performs finger to nose and heel to bunn symmetrically without ataxia, no gait ataxia, no truncal ataxia, no difficulty with rapid alternating movements Results - Laboratory Findings CBC and BMP: 06/15/18 04:12 06/15/18 04:12 Abnormal lab findings: Abnormal lab results RDW 11.1 % (11.5-14.5) L 06/15/18 04:12 Lymphocytes # 0.5 K/mcL (0.6-4.6) L 06/15/18 04:12 Potassium 3.4 mEq/L (3.5-5.1) L 06/15/18 04:12 Glucose 160 mg/dL (70-105) H 06/15/18 04:12 Urine Ketones 15 mg/dL (Negative) H 06/14/18 19:42 Ur Squamous Epith Cells Many per lpf (None-Few) H 06/14/18 19:42 Salicylates < 2.5 mg/dL (15.0-30.0) L 06/14/18 19:52 Acetaminophen < 10 mcg/mL (10-20) L 06/14/18 19:52 U Benzodiazepines Scrn Positive ng/mL ([id number]) H 06/14/18 19:42 Consult Discharge Plan - Plan Referrals: NONE,PCP [Primary Care Provider] -
--- NOTE | 2018-06-15 13:21 | Discharge Summary ---
- NOTES TO OUTPATIENT PROVIDER Notes to Outpatient Provider: Follow-up with neurology within a week of hospital discharge. Orders not resulted at time of discharge: Pending orders 06/14/18 17:22 ECG 12 lead ECG [ECG] Stat 06/14/18 19:46 IR drain cerebrospinal fluid [IR] Stat 06/14/18 19:52 Culture,Blood [BC] Stat 06/14/18 20:15 IR fluoroguide for spine inj [IR] Stat 06/14/18 21:37 Culture,CSF [RM] Stat 06/14/18 21:41 Herpes Simplex PCR Body Fl Routine Date of Encounter: 06/15/18 Time of Encounter: 13:18 - Discharge Diagnosis (1) Status epilepticus Priority: Primary Status: Acute (2) DVT prophylaxis Priority: Secondary Status: Acute (3) Seizure Priority: Primary Status: Chronic (4) Altered mental status Priority: Primary Status: Resolved Qualifiers: Altered mental status type: disorientation Qualified Code(s): R41.0 - Disorientation, unspecified Hospital course: Mr. Queen is a 22 year old male H significant for seizure disorder, currently not on antiepileptic therapy who presented to ER with high fever, feeling sick and then a witnessed 'iraj mal' seizure and then prolonged altered mental status. Patient reported having flu like symptoms, rapid flu test negative. 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 Head CT unremakable, neurology consulted: [facility] outpatient MRI and to continue trokendi and keppra EEG done no abnormalities. Patient is hemodynamically stable to be discharged. Recommended to follow-up with a neurologist in a week of hospital discharge. - Time Spent with Patient Total time spent providing and/or coordinating discharge services: Greater than 30 minutes (35) - Discharge Medications Prescriptions: LevETIRAcetam [Keppra] 500 mg PO BID 30 Days #60 tablet Home Medications: Cyclobenzaprine [Flexeril] 10 mg PO TID #30 tablet 03/16/15 [Rx] Ibuprofen [Motrin] 800 mg PO Q8HR #30 tablet 03/16/15 [Rx] LevETIRAcetam [Keppra] 500 mg PO BID 30 Days #60 tablet 06/15/18 [Rx] Allergies/Adverse Reactions: Allergy/AdvReac Type Severity Reaction Status Date / Time No Known Allergies Allergy Verified 03/16/15 09:04 Date of admission: 06/15/18 00:03 Primary care physician: PCP NONE Consults: 06/14/18 19:47 Consult to Interventional Radiology [CONS] Stat Consulting Provider: Radiology Interventional Cols Reason for Consult: AMS, LP Time Notified: 19:48 Call Completed: Yes - Constitutional Vitals: Temp Pulse Resp BP Pulse Ox 97.3 F L 79 16 108/62 96 06/15/18 11:45 06/15/18 11:45 06/15/18 11:45 06/15/18 11:45 06/15/18 11:45 General appearance: Present: A&O X 3, pleasant, no acute distress, answers questions appropriately Exam: Vitals: reviewed. General: Alert and oriented Skin: Normal color, no rash, no lesions. HEENT: EOM, pupils equal, round and reactive. Cardiovascular: Normal S1 & S2, no rubs, murmurs or gallops. No JVD. Pulse regular. Lungs: CTA b/l, no wheezes or crackles. Abdomen: Soft, non-tender, no rigidity. Extremities: No deformity, no edema or tenderness, no joint swelling or clubbing. Neurological: Normal cognition and motor skills. Pulses:Carotid and radial pulses normal +2. Rest of the physical exam is non contributory - Patient Status Disposition: Left Against Medical Advice Condition: Good Functional capacity at discharge: independent ambulation Overall status at discharge: patient is back to baseline - Discharge Instructions Follow Up With: NONE,PCP [Primary Care Provider] - - Diet and Activity Activity: resume usual activities as tolerated Diet: advance to your usual diet, low salt diet
--- NOTE | 2018-06-16 14:59 | Electrocardiograph Report ---
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
[2018-06-17 16:55] LABS: HSV Source CSF
== END 2018-06-15 14:21 | disposition left against medical advice (07) ==
LOC: 3ANU 17:16 → EMEROOARM 17:16 → 3BNU 06-15 00:04
PROVIDERS: ADMIT Internal Medicine; ATTEND Internal Medicine